=== PATIENT | female | born 1995 | race Caucasian/White ===

== ENCOUNTER 2019-10-16 17:15 | Emergency (ER) | payer OTHER ==
[~2019-10-16] VITALS: Ht 167.6 cm; Wt 45.4 kg
[~2019-10-16 17:15] MED LIST: BCP; XANAX
[2019-10-16] MEDS ORDERED: ZOFRAN ODT4 MG SUBLING (17:44)
[2019-10-16 17:51] LABS: ABSOLUTE BASOPHILS 0.1 thou/uL (0.0-0.2); ABSOLUTE EOSINOPHILS 0.1 thou/uL (0.0-0.7); ABSOLUTE LYMPHOCYTES 1.5 thou/uL (0.8-5.3); ABSOLUTE MONOCYTES 0.5 thou/uL (0.0-1.2); ABSOLUTE NEUTROPHILS 4.6 thou/uL (1.6-8.1); BASOPHILS 0.9 %; HEMOGLOBIN 13.5 gm/dL (12.0-15.0); LYMPHOCYTES 22.2 %; MCH 30.3 pg (26.0-34.0); MCHC 34.5 g/dL (28.0-37.0); MCV 87.8 fL (80.0-100.0); MONOCYTES 7.3 %; MPV 8.8 fl. (7.2-11.1); NUCLEATED RBCS 0 /100WBC; PLATELET COUNT* 228 thou/uL (150-400); POLYS 68.6 %; RBC 4.44 mil/uL (4.20-5.00); RDW-CV 12.7 % (10.5-14.5); WBC 6.7 thou/uL (4.0-11.0)
[2019-10-16 18:00] LABS: CALCIUM 9.3 mg/dL (8.5-10.1); CREATININE 0.4 mg/dL (0.6-1.3); POTASSIUM 3.8 mmol/L (3.5-5.1)
[2019-10-16 18:14] LABS: ALBUMIN 4.2 g/dL (3.4-5.0); TOTAL BILIRUBIN 1.2 mg/dL (<0.1-1.0); TOTAL PROTEIN 7.3 g/dL (6.4-8.2)
[2019-10-16 18:30] LABS: PROTIME 10.7 Seconds (9.20-11.50)
[2019-10-16 18:43] VITALS: BP 113/43
== END 2019-10-16 18:43 | disposition home or self-care (01) ==
LOC: M.ERS 17:15
PROVIDERS: Family Medicine
DX: O99.341 Other mental disorders complicating pregnancy, first trimester (principal); O21.8 Other vomiting complicating pregnancy; Z3A.01 Less than 8 weeks gestation of pregnancy